=== PATIENT | female | born 1975 | race American Indian/Alaskan Native ===

== ENCOUNTER 2020-04-09 01:40 | Emergency (ER) | payer MEDICAID ==
[2020-04-09 02:52] LABS: Bilirubin,Urine NEG (Negative); Blood,Urine NEG (Negative); Color,Urine Yellow (Yellow); Mucus,Urine FEW /HPF; Protein,Urine <15 mg/dL mg/dL (Negative); Urobilinogen,Urine < 2.0 mg/dL (<2.0)
[2020-04-09 03:46] LABS: Basophils % (Auto) 0.6 % (0.0-1.8); Eosinophils # (Auto) 0.3 K/mm3 (0.0-0.4); Eosinophils % (Auto) 4.7 % (0.0-4.3); Hematocrit 35.6 % (30.3-42.9); Hemoglobin 11.2 gm/dl (10.1-14.3); Lymphocytes # (Auto) 2.5 K/mm3 (1.2-5.4); Mean Corpuscular HGB Conc 31 % (30-34); Mean Corpuscular Volume 74 fl (79-97); Monocytes # (Auto) 0.6 K/mm3 (0.0-0.8); Monocytes % (Auto) 10.8 % (0.0-7.3); Platelet Count 298 K/mm3 (140-440); Red Cell Distribution Width 16.9 % (13.2-15.2)
[2020-04-09 04:02] LABS: Alanine Aminotransferase 10 units/L (7-56); Albumin 4.2 g/dL (3.9-5); BUN/Creatinine Ratio 19; Blood Urea Nitrogen 13 mg/dL (7-17); Calcium 9.4 mg/dL (8.4-10.2); Hemolysis Index 20
--- NOTE | 2020-04-09 09:45 | Cat Scan Report ---
CT abdomen pelvis wo con INDICATION: Nausea and vomiting x3 days.. TECHNIQUE: All CT scans at this location are performed using the following dose modulation technique: Automated exposure control. CONTRAST: None. COMPARISON: None available. CT ABDOMEN: The parenchymal organs are unremarkable in appearance. Negative for abdominal mass, fluid or inflammation. The bowel is not dilated or thickened. Diastases is noted at the rectus muscles wit h eventration of the anterior abdominal wall. CT PELVIS: Negative for pelvic mass, fluid collection or inflammation. A small amount of pelvic free fluid is present. The appendix is normal. IMPRESSION: Negative for obstruction or localized inflammation. Signer Name: Jefry Reeder MD Signed: 04/09/2020 9:41 AM Workstation Name: [id number]
--- NOTE | 2020-04-09 10:47 | Emergency Department Report ---
ED Abdominal Pain HPI - General Chief Complaint: Abdominal Pain Stated Complaint: ABDOMINAL PAIN Time Seen by Provider: 04/09/20 08:05 Source: patient Mode of arrival: Ambulatory Limitations: No Limitations - History of Present Illness Initial Comments: 44-year-old female is emergency department complaining of vague abdominal aches with increased amount of nausea with a strong suspicion for although her home test have been negative x3 get emergency department for reevaluation and repeat testing reports no hemoptysis, hematemesis, hematochezia. Reports no diarrhea but has felt some bloating to the stomach and vague constipation. MD Complaint: abdominal pain -: days(s) (2) Radiation: none Migration to: no migration Quality: aching, dull Consistency: constant Improves With: nothing Worsens With: nothing Context: other Associated Symptoms: denies other symptoms - Related Data Previous Rx's Medication Instructions Recorded Last Taken Type Ondansetron [Zofran Odt] 4 mg PO Q8HR #20 tab.rapdis 04/09/20 Unknown Rx Allergies Allergy/AdvReac Type Severity Reaction Status Date / Time No Known Allergies Allergy Unverified 04/09/20 02:00 ED Review of Systems ROS: Stated complaint: ABDOMINAL PAIN Other details as noted in HPI Comment: All other systems reviewed and negative ED Past Medical Hx - Past Medical History Previous Medical History?: No - Surgical History Past Surgical History?: No - Social History Smoking Status: Never Smoker Substance Use Type: None - Medications Home Medications: Home Medications Medication Instructions Recorded Confirmed Last Taken Type Ondansetron [Zofran Odt] 4 mg PO Q8HR #20 tab.rapdis 04/09/20 Unknown Rx ED Physical Exam - General Limitations: No Limitations General appearance: alert, in no apparent distress - Head Head exam: Present: atraumatic, normocephalic - Eye Eye exam: Present: normal appearance, PERRL, EOMI Pupils: Present: normal accommodation - ENT ENT exam: Present: normal exam, mucous membranes moist - Neck Neck exam: Present: normal inspection - Respiratory Respiratory exam: Present: normal lung sounds bilaterally. Absent: respiratory distress - Cardiovascular Cardiovascular Exam: Present: regular rate, normal rhythm. Absent: systolic murmur, diastolic murmur, rubs, gallop - GI/Abdominal GI/Abdominal exam: Present: soft, tenderness (right abdomen), normal bowel sounds - Extremities Exam Extremities exam: Present: normal inspection, full ROM, normal capillary refill - Back Exam Back exam: Present: normal inspection. Absent: CVA tenderness (R), CVA tenderness (L) - Neurological Exam Neurological exam: Present: alert, oriented X3, CN II-XII intact - Psychiatric Psychiatric exam: Present: normal affect, normal mood. Absent: anxious - Skin Skin exam: Present: warm, dry, intact, normal color. Absent: rash, cyanosis, diaphoretic, erythema ED Course Vital Signs 04/09/20 01:58 Temperature 98.9 F Pulse Rate 71 Respiratory 18 Rate Blood Pressure 103/70 O2 Sat by Pulse 99 Oximetry ED Medical Decision Making - Lab Data Result diagrams: 04/09/20 03:08 04/09/20 03:08 - Radiology Data Radiology results: report reviewed Findings [facility] [address] [place] [address] Cat Scan Report Signed Patient: RITO MEYERS MR #: [id number] : 1975 Acct:[id number] Age/Sex: 44 / F ADM Date: 04/09/20 Loc: ED Attending Dr: Ordering Physician: SHAWANDA BORJAS Date of Service: 04/09/20 Procedure(s): CT abdomen pelvis wo con Accession Number(s): [id number] cc: SHAWANDA BORJAS CT abdomen pelvis wo con INDICATION: Nausea and vomiting x3 days.. TECHNIQUE: All CT scans at this location are performed using the following dose modulation technique: Automated exposure control. CONTRAST: None. COMPARISON: None available. CT ABDOMEN: The parenchymal organs are unremarkable in appearance. Negative for abdominal mass, fluid or inflammation. The bowel is not dilated or thickened. Diastases is noted at the rectus muscles with eventration of the anterior abdominal wall. CT PELVIS: Negative for pelvic mass, fluid collection or inflammation. A small amount of pelvic free fluid is present. The appendix is normal. IMPRESSION: Negative for obstruction or localized inflammation. Signer Name: Jefry Reeder MD Signed: 04/09/2020 9:41 AM Workstation Name: [id number] Transcribed By: ES Dictated By: Jefry Reeder MD Electronically Authenticated By: Jefry Reeder MD Signed Date/Time: 04/09/20940 DD/ 6 TD/TT: - Medical Decision Making My abdominal pain this patient presents with abdominal pain of unclear etiology. A CT scan was performed to evaluate for potential causes of the abdominal pain, however, neither the clinical exam nor the CT has identified an emergent etiology for the abdominal pain. Specifically, given the benign exam, the laboratory studies, and unremarkable CT, I have a very low suspicion for appendicitis, ischemic bowel, bowel perforation, or any other life threatening disease. I have discussed with the patient the level of uncertainty with undifferentiated abdominal pain and clearly explained the need to follow-up as noted on the discharge instructions, or return to the Emergency Department immediately if the pain worsens, develops fever, persistent and uncontrollable vomiting, or for any new symptoms or concerns. Critical care attestation.: If time is entered above; I have spent that time in minutes in the direct care of this critically ill patient, excluding procedure time. ED Disposition Clinical Impression: Abdominal pain Disposition: DC-01 TO HOME OR SELFCARE Is pt being admited?: No Does the pt Need Aspirin: No Condition: Stable Instructions: Abdominal Pain (ED) Prescriptions: Ondansetron [Zofran Odt] 4 mg PO Q8HR #20 tab.rapdis Referrals: BILL KAT MD [Primary Care Provider] - 3-5 Days
[2020-04-09 12:05] VITALS: BP 101/63
== END 2020-04-09 12:06 | disposition home or self-care (01) ==
LOC: ED 01:40
DX: R10.9 Unspecified abdominal pain (principal); Z79.899 Other long term (current) drug therapy
CPT/HCPCS: 36415; 74176; 80053; 81001; 84702; 85025